=== PATIENT | female | born 1970 | race Caucasian/White ===

== ENCOUNTER → 2019-09-16 11:49 | Outpatient (CLI) | payer OTHER, MEDICAID, SELFPAY ==
--- NOTE | 2019-09-16 11:52 | BI_ITS ---
MAMMOGRAPHY - BILATERAL SCREENING REASON FOR EXAM: Female, 49 years old. Routine annual screening examination. PERTINENT HISTORY: Mother with breast cancer. TECHNIQUE: Digital bilateral breast rian (3D mammographic acquisition) in the CC and MLO projections. 2-D mediolateral oblique (MLO) and craniocaudad (CC) views of both breasts were obtained. CAD: Full Field Digital Mammography with Computer Added Detection was performed. COMPARISON: Comparison is made with prior examination dated June 19, 2017 and July 02, 2014. FINDINGS: Breast Composition: The breasts are heterogeneously dense, which may obscure small masses. There are no dominant masses or suspicious calcifications. Stable 1.4 cm x 1.4 cm well-defined nodule in the upper slightly lateral aspect of the left breast. This was demonstrated to be a cyst on prior ultrasound. Stable scattered bilateral calcifications. No other significant abnormalities are identified. There has been no significant change since the prior study. BI/SCREEN MAMM (CAD) W/RIAN BILAT IMPRESSION: Stable bilateral screening mammogram. Yearly follow-up mammogram recommended. (A) ASSESSMENT CATEGORY: BIRADS Category 2: Benign. A letter regarding these results will be sent to the patient by the facility within 30 days. Approximately 10% of breast cancers are not detected by mammography. A normal mammogram should not delay biopsy of a clinically suspicious abnormality. [id number] Electronically Signed: Huy Roche, at 11:27 EST , Service support ,
== END ==
LOC: OPBI 11:49
PROVIDERS: PCP Nurse Practitioner; Referring Provider Nurse Practitioner; Visit Provider Nurse Practitioner
DX: Z12.31 Encounter for screening mammogram for malignant neoplasm of breast (principal); Z80.3 Family history of malignant neoplasm of breast
CPT/HCPCS: 77063; 77067

== ENCOUNTER 2021-04-07 10:21 | Emergency (ER) | payer MEDICAID, SELFPAY ==
[2021-04-07 10:23] VITALS: BP 118/73; PULSE 100; RESP 18; TEMP 36.5; O2SAT 95; BMI 27.7
--- NOTE | 2021-04-07 11:11 | RAD_ITS ---
STUDY: X-RAY CHEST REASON FOR EXAM: Female, 50 years old. COVID +, incresaing SOB TECHNIQUE: Single AP portable view of the chest. COMPARISON: Comparison is made with prior study dated 07/02/2016. FINDINGS: Patchy infiltrate in the lateral aspect of the right lower lobe. Minimal increased markings at the left lung base. There is no demonstrated pleural abnormality. Normal size heart. Normal mediastinum and suki. Normal visualized pulmonary arteries. Normal visualized aortic arch and descending thoracic aorta. Normal visualized thoracic spine. Normal visualized ribs, clavicles, and shoulders. There is no demonstrated abnormality of the visualized soft tissue structures of the upper abdomen. RAD/Chest 1 View (Portable) IMPRESSION: Patchy infiltrate in the right lower lobe with mild increased markings at the left lung base. Electronically Signed: Huy Roche MD at 11:54 EDT , Service support ,
[2021-04-07 11:15] VITALS: BP 109/78; PULSE 84; RESP 22; TEMP 36.7; O2SAT 96
[2021-04-07 11:34] LABS: Absolute Lymphocyte Count 1.09 X10^3/uL (0.83-4.51); Absolute Neutrophil Count 2.9 X10^3/uL (2.0-7.7); Basophil# 0.01 X10^3/uL; Basophil% 0.2 % (0-1); Eosinophils% 2.2 % (0-5); Hematocrit 43.1 % (37-47); Hemoglobin 13.8 g/dL (12.0-15.0); Lymphocyte # 1.09 X10^3/ul (0.83-4.51); Lymphocyte % 24.4 % (19-41); Mean Corpuscular Hgb 28.6 pg (27.0-32.0); Mean Corpuscular Volume 89.2 fL (81-99); Monocyte# 0.34 X10^3/uL; Monocyte% 7.6 % (0-10); NRBC Flagged by Analyzer 0 % (0-5); Neutrophil # 2.91 X10^3/uL (2.7-7.7); Neutrophil % 65.4 % (47-70); Platelet Count 129 K/mm3 (150-450); RBC Distribution Width CV 12.4 % (11.6-14.6); RBC Distribution Width SD 40.7 fl (35.1-43.9); Red Blood Count 4.83 M/mm3 (4.2-5.4); White Blood Count 4.5 K/mm3 (4.4-11.0)
[2021-04-07 11:48] LABS: Anion Gap 4 (5-15); BUN 14 mg/dL (7-18); BUN/Creat Ratio 19.1 RATIO (10-20); Calcium,Total 8.5 mg/dL (8.5-10.1); Chloride 108 mmol/L (98-107); Creatinine, Serum 0.73 mg/dL (0.55-1.02); EST Glomerular Filtration Rate 90 mL/min (>60); Est Glom Filt Rate - Afr Amer 109 mL/min (>60); Estimated Creatinine Clearance 95.07 ml/min; Glucose 85 mg/dL (74-106); Potassium 3.8 mmol/L (3.5-5.1); Sodium Level 140 mmol/L (136-145); Troponin-I HS 4 pg/mL (3.0-54.0)
[2021-04-07 11:53] LABS: D-Dimer Quantitative (DVT/PE) 0.67 FEU/ug/m (0.27-0.49)
--- NOTE | 2021-04-07 12:19 | CT_ITS ---
STUDY: CTA CHEST REASON FOR EXAM: Female, 50 years old. COVID, elev dimer, SOB RADIATION DOSAGE (If Supplied By Facility): CTDIvol = ( 10.92 ) mGy, DLP = ( 440.01 ) mGycm TECHNIQUE: The examination was performed with the intravenous administration of IV 100mL Isovue-370. Post-processing of the angiographic images was performed, with multiplanar reformation and 3D reconstruction. Individualized dose optimization techniques were used for this CT. COMPARISON: Comparison is made with prior chest radiograph done earlier today. FINDINGS: Normal enhancement of the main pulmonary artery and right and left pulmonary arteries. Normal enhancement of the bilateral peripheral pulmonary arteries. There is no demonstrated pulmonary embolism. Normal thoracic aorta and visualized great vessels. There is no demonstrated aortic dissection. Normal heart and pericardium. Normal mediastinum. Normal hilar regions. Normal visualized trachea and bronchi. The lungs are well expanded. Patchy airspace disease along the peripheral aspect of the right lower lobe. This is in keeping with Covid 19 pneumonitis. Normal pleura. Normal chest wall structures. Normal osseous structures. Normal visualized upper abdomen. CT/CTA Chest W/WO Contrast IMPRESSION: No evidence of pleural embolism. Patchy infiltrates in the peripheral aspect of the right lower lobe in keeping with Covid 19 pneumonitis. Electronically Signed: Huy Roche MD at 13:10 EDT , Service support ,
--- NOTE | 2021-04-07 12:26 | EDS_ITS ---
HPI History of Present Illness Chief Complaint: Shortness of Breath Informant: patient Narrative Narrative: Patient is a 50-year-old female who presents to the emergency department for shortness of breath. She was diagnosed with Covid 8 days ago. This is around day 10 of symptoms. She states that she was starting to improve but recently has started to feel very short of breath. It is worse at nighttime and when she exerts herself. She has been coughing and occasionally bringing up sputum. She has had some intermittent fevers. She denies any chest pain. No leg swelling or calf pain. No abdominal pain or vomiting. She has not been taking anything for this. She has been monitoring her home pulse oximeter. The lowest that it got was 90%. She denies a smoking history. She has not been vaccinated. PFSH PFSH Home Medications sertraline [Zoloft] 200 mg PO DAILY 04/07/21 [History Last Taken Unknown] Allergy/AdvReac Type Severity Reaction Status Date / Time sulfamethoxazole Allergy Other Verified 04/07/21 10:21 [From Bactrim] trimethoprim [From Bactrim] Allergy Other Verified 04/07/21 10:21 Surgical History (Updated 04/07/21 @ 11:16 by Keira Larry) History of repair of ACL Social History Smoking Status: Never smoker ROS ROS ED Eyes Eyes: Denies change in vision ENT ENT ED: Denies epistaxis or rhinorrhea Cardiovascular Cardiovascular: Denies chest pain or palpitations Respiratory/Chest Respiratory/Chest: Reports cough, dyspnea, dyspnea on exertion and sputum Gastrointestinal Gastrointestinal: Denies abdominal pain, diarrhea, nausea or vomiting Musculoskeletal Musculoskeletal: Denies back pain or neck pain Integumentary Denies rash Neurologic Neurologic: Denies dizziness, headache(s) or weakness EXAM Physical Exam Const Vital Signs: 04/07/21 10:23 04/07/21 11:15 04/07/21 13:18 Temperature 97.7 F L 98.1 F 99.1 F Temperature Source Temporal Temporal Temporal Pulse Rate 100 84 82 Respiratory Rate 18 22 H 18 Respiratory Effort Short of Breath Respiratory Pattern Tachypnea Blood Pressure 118/73 109/78 104/91 H Blood Pressure Mean 88 88 95 Pulse Ox 95 96 97 Oxygen Delivery Method Room Air Room Air Room Air 04/07/21 13:36 Temperature Temperature Source Pulse Rate 75 Respiratory Rate 18 Respiratory Effort Respiratory Pattern Blood Pressure 114/68 Blood Pressure Mean Pulse Ox 97 Oxygen Delivery Method Positive well nourished and well developed General Appearance ED: well developed and NAD HEENT Reports normocephalic and head/scalp atraumatic Eyes PERRL and EOMs intact bilaterally Neck supple Chest Wall inspection of chest normal Resp normal respiratory effort and clear to auscultation bilaterally Auscultation: Negative for rales, rhonchi or wheezes Cardio regular rate, regular rhythm and no murmurs Extremity normal to inspection General Extremety ED: Negative for edema or tenderness General Extremity: Negative for edema Neuro Sensorium / Orientation: alert Motor Exam: strength 5/5 throughout Psych mental status grossly normal Skin no rashes or lesions noted MDM MDM MDM Narrative Medical decision making narrative: Patient presents the ED for shortness of br eath. She is currently Covid positive. This is worse with exerting herself. No chest pain. On arrival she is satting 95% on room air and borderline tachycardic. On repeat evaluation patient resting comfortably. X-ray is being obtained along with basic lab work and D-dimer. Patient's D-dimer was mildly elevated so CT angio is being performed. She has had higher D-dimers before in the past. She denies any history of blood clots. CT angio was performed and did not reveal any evidence of blood clot. There are some peripheral consolidation consistent with Covid pneumonia. She otherwise has remained stable throughout ED stay. Will recommend symptomatic treatment. She is to continue to monitor home pulse oximeter. Given the length of symptoms she does not qualify for antibiotic therapy. She is not hypoxic and does not need steroids at this time. She is to follow-up with her PCP. All questions were answered. Lab Data Labs: Laboratory Results - last 24 hr 04/07/21 04/07/21 04/07/21 11:22 11:22 11:22 WBC 4.5 RBC 4.83 Hgb 13.8 Hct 43.1 MCV 89.2 MCH 28.6 MCHC 32.0 RDW Std Deviation 40.7 RDW Coeff of [place]ana 12.4 Plt Count 129 L MPV 10.0 Immature Gran % (Auto) 0.200 Neut % (Auto) 65.4 Lymph % (Auto) 24.4 [place] % (Auto) 7.6 Eos % (Auto) 2.2 Baso % (Auto) 0.2 Absolute Neuts (auto) 2.9 Absolute Lymphs (auto) 1.09 Nucleated RBC % 0 D-Dimer Quant (PE/DVT) 0.67 H* Sodium 140 Potassium 3.8 Chloride 108 H Carbon Dioxide 28.0 Anion Gap 4 L BUN 14 Creatinine 0.73 Estim Creat Clear Calc 95.07 Est GFR (MDRD) Af Amer 109 Est GFR (MDRD) Non-Af 90 BUN/Creatinine Ratio 19.1 Glucose 85 Calcium 8.5 Troponin I High Sens 4 Radiography Diagnostic Testing: Radiology Impression Chest X-Ray 04/07/21 11:11 IMPRESSION: Patchy infiltrate in the right lower lobe with mild increased markings at the left lung base. Electronically Signed: Huy Roche MD at 11:54 EDT , Service support , Chest CTA 04/07/21 12:19 IMPRESSION: No evidence of pleural embolism. Patchy infiltrates in the peripheral aspect of the right lower lobe in keeping with Covid 19 pneumonitis. Electronically Signed: Huy Roche MD at 13:10 EDT , Service support , Discharge Plan Triage Chief Complaint: Shortness of Breath ED Provider: Krzysztof Louis Dx/Rx/DC Orders Clinical Impression: Pneumonia due to COVID-19 virus, Dyspnea Instructions: Coronavirus Disease 2019 (COVID-19): Caring for Yourself or Others, COVID-19: Lying in a Prone Position (Proning) Prescriptions: No Action sertraline [Zoloft] 100 mg Tablet 200 mg PO DAILY RF: 0 Primary Care Provider: Libertad Patel NP Referrals: Libertad Patel [employer] ATTENDANT, [employer] ATTENDANT-C [Primary Care Provider] - 1 Week Disposition Disposition: Home, Self Care Discharge Date/Time: 04/07/21 13:36
[2021-04-07 13:18] VITALS: BP 104/91; PULSE 82; RESP 18; TEMP 37.3; O2SAT 97
[2021-04-07 13:36] VITALS: BP 114/68; PULSE 75; RESP 18; O2SAT 97
== END 2021-04-07 13:36 | disposition home or self-care (01) ==
PROVIDERS: Emergency Provider Emergency Medicine; PCP Clinical Nurse Specialist
DX: U07.1 COVID-19 (principal); J12.82 Pneumonia due to coronavirus disease 2019
CPT/HCPCS: 71045; 71275; 80048; 84484; 85025; 85379; 99283; Q9967; A4216

== ENCOUNTER 2021-06-20 15:08 | Emergency (ER) | payer MEDICAID, SELFPAY ==
[2021-06-20 15:09] VITALS: BP 152/88; PULSE 91; RESP 18; TEMP 36.7; O2SAT 97; BMI 26.6
[2021-06-20 17:57] LABS: Absolute Lymphocyte Count 0.91 X10^3/uL (0.83-4.51); Absolute Neutrophil Count 9.1 X10^3/uL (2.0-7.7); Basophil# 0.03 X10^3/uL; Basophil% 0.3 % (0-1); Eosinophil# 0.09 X10^3/uL; Eosinophils% 0.9 % (0-5); Hemoglobin 14.1 g/dL (12.0-15.0); Lymphocyte # 0.91 X10^3/ul (0.83-4.51); Lymphocyte % 8.6 % (19-41); Mean Corpuscular Hgb 28.4 pg (27.0-32.0); Mean Corpuscular Volume 88.5 fL (81-99); Mean Platelet Vol. 9.1 fl (6.2-12.0); Monocyte# 0.38 X10^3/uL; Monocyte% 3.6 % (0-10); NRBC Flagged by Analyzer 0 % (0-5); Neutrophil # 9.09 X10^3/uL (2.7-7.7); Neutrophil % 86.2 % (47-70); Platelet Count 289 K/mm3 (150-450); RBC Distribution Width CV 12.9 % (11.6-14.6); RBC Distribution Width SD 42.2 fl (35.1-43.9); Red Blood Count 4.97 M/mm3 (4.2-5.4); White Blood Count 10.5 K/mm3 (4.4-11.0)
[2021-06-20 18:13] LABS: Anion Gap 3 (5-15); BUN 9 mg/dL (7-18); BUN/Creat Ratio 12.3 RATIO (10-20); Calcium,Total 9.1 mg/dL (8.5-10.1); Chloride 109 mmol/L (98-107); Creatinine, Serum 0.73 mg/dL (0.55-1.02); EST Glomerular Filtration Rate 90 mL/min (>60); Est Glom Filt Rate - Afr Amer 109 mL/min (>60); Estimated Creatinine Clearance 95.07 ml/min; Glucose 141 mg/dL (74-106); Sodium Level 139 mmol/L (136-145)
--- NOTE | 2021-06-20 18:45 | EX.ED.VIS.HA ---
HPI History of Present Illness Chief Complaint: Headache Informant: patient Onset/Context/Timing Onset: Today Context: Gradual Timing: Continuous Quality -Headache: Positive for Similar Prior Headaches and Throbbing Location: Right side of head and neck Worsened by: Light, sound Relieved by: Nothing Associated Symptoms/Injury Associated Symptoms: Positive for Nausea, Vomiting, Visual Changes, Blurred Vision and Photophobia; Negative for Fever, Sore Throat, Sinus Pressure, Numbness, Tingling, Preceding Aura and Visual Loss Injury - MCKOY: Negative for Direct Trauma Narrative Narrative: Patient presents with headache that began today. Patient states she woke up with her headache. Patient states it feels similar to prior migraine headaches. Patient describes her pain as throbbing. Patient states it is mainly on the right side of her head and radiates into her neck. Patient states it is worse with lights and sounds. Patient admits to some nausea and vomiting. Patient also admits to some blurred vision. Patient states she took her Maxalt this morning with no improvement. [facility] Medical History (Updated 06/20/21 @ 18:[address] Dale Russell DO) Migraine headache Home Medications sertraline [Zoloft] 200 mg PO DAILY 04/07/21 [History Last Taken Unknown] Allergy/AdvReac Type Severity Reaction Status Date / Time sulfamethoxazole Allergy Other Verified 06/20/21 15:11 [From Bactrim] trimethoprim [From Bactrim] Allergy Other Verified 06/20/21 15:11 Surgical History History of repair of ACL Social History Smoking Status: Never smoker ROS ROS ED Constitutional Constitutional ED: Denies chills or fever(s) Eyes Eyes: Reports blurry vision; Denies diplopia ENT ENT ED: Denies rhinorrhea or sore throat Cardiovascular Cardiovascular: Denies chest pain or palpitations Respiratory/Chest Respiratory/Chest: Denies cough or dyspnea Gastrointestinal Gastrointestinal: Reports nausea and vomiting Genitourinary Genitourinary ED: Denies dysuria or hematuria Musculoskeletal Musculoskeletal: Reports back pain and neck pain Integumentary Denies abscess or rash Neurologic Neurologic: Reports headache(s); Denies weakness Allergic/Immunologic Allergic/Immunologic ED: Denies mouth swelling or urticaria EXAM Physical Exam Const Vital Signs: 06/20/21 15:09 Temperature 98.1 F Temperature Source Temporal Pulse Rate 91 Respiratory Rate 18 Blood Pressure 152/88 H Blood Pressure Mean 109 Pulse Ox 97 Oxygen Delivery Method Room Air Positive well nourished and well developed General Appearance ED: well developed HEENT Reports moist mucous membranes Neck supple and no JVD Resp normal respiratory effort and clear to auscultation bilaterally Cardio regular rate, regular rhythm and no murmurs GI normal to inspection, nondistended, normoactive bowel sounds and non-tender Palpation: soft Extremity normal to inspection General Extremety ED: Negative for edema or tenderness General Extremity: Negative for edema Neuro oriented x3, CN's II-XII intact bilaterally and no sensory deficits noted Sensorium / Orientation: awake and alert Motor Exam: strength 5/5 throughout Psych mental status grossly normal Skin no rashes or lesions noted MDM MDM MDM Narrative Medical decision making narrative: Patient was given IV fluids, Reglan, Benadryl, and Toradol. CBC and basic metabolic profile were within normal limits. Patient was feeling better on reevaluation. Patient was instructed to rest in a dark quiet room. Patient was instructed to follow-up with her primary care physician in 5 to 7 days. Patient understood and was agreeable with the plan. All questions were answered. Lab Data Attestation: I reviewed the patient's lab results. Labs: Laboratory Results - last 24 hr 06/20/21 06/20/21 17:50 17:50 WBC 10.5 RBC 4.97 Hgb 14.1 Hct 44.0 MCV 88.5 MCH 28.4 MCHC 32.0 RDW Std Deviation 42.2 RDW Coeff of [place] 12.9 Plt Count 289 MPV 9.1 Immature Gran % (Auto) 0.400 Neut % (Auto) 86.2 H Lymph % (Auto) 8.6 L [place] % (Auto) 3.6 Eos % (Auto) 0.9 Baso % (Auto) 0.3 Absolute Neuts (auto) 9.1 H Absolute Lymphs (auto) 0.91 Nucleated RBC % 0 Sodium 139 Potassium 4.0 Chloride 109 H Carbon Dioxide 27.0 Anion Gap 3 L BUN 9 Creatinine 0.73 Estim Creat Clear Calc 95.07 Est GFR (MDRD) Af Amer 109 Est GFR (MDRD) Non-Af 90 BUN/Creatinine Ratio 12.3 Glucose 141 H Calcium 9.1 Discharge Plan Triage Chief Complaint: Headache ED Provider: Dale Russell Dx/Rx/DC Orders Clinical Impression: Headache, migraine Instructions: ED, Migraine (Classical) Prescriptions: No Action sertraline [Zoloft] 100 mg Tablet 200 mg PO DAILY RF: 0 Primary Care Provider: Libertad Patel NP Referrals: Libertad Patel NP, [employer]-[facility] [Primary Care Provider] - 3-5 Days Disposition Disposition: Home, Self Care
[2021-06-20] MEDS: DiphenhydrAMINE 50 MG/ML Syringe 25 MG IV (19:02)
[2021-06-20] MEDS: 0.9% Normal Saline 1,000 ML 999 ML IV (19:02)
[2021-06-20] MEDS: Ketorolac 15 MG/ML Vial IV (19:03)
[2021-06-20] MEDS: Metoclopramide 10 MG/2 ML Vial IV (19:04)
== END 2021-06-20 20:07 | disposition home or self-care (01) ==
PROVIDERS: Emergency Provider Emergency Medicine; PCP Clinical Nurse Specialist
DX: G43.909 Migraine, unspecified, not intractable, without status migrainosus (principal)
CPT/HCPCS: 80048; 85025; 96361; 96374; 96375; 99281; 99282; J7030

== ENCOUNTER 2025-05-07 10:22 | Emergency (ER) | payer MEDICAID, SELFPAY ==
[2025-05-07 10:22] VITALS: BP 128/81; PULSE 76; RESP 14; TEMP 36.1; O2SAT 98; BMI 25.2
[2025-05-07 11:00] VITALS: BP 116/72; BP 120/93; BP 124/82; PULSE 59; PULSE 65; PULSE 79
--- NOTE | 2025-05-07 11:00 | RAD_ITS ---
PROCEDURE: CHEST PA AND LATERAL 05/07/2025 REASON FOR EXAM: WEAKNESS TECHNIQUE: Procedure Code: RADCXR Modality: DX Procedure: CHEST PA AND LATERAL COMPARISON: None. FINDINGS: Hardware: None. Heart: No cardiomegaly. Mediastinum: Unremarkable. Lungs: Linear atelectasis in the lingula. No pleural effusion or pneumothorax. Bones: No acute bony abnormalities. RAD/Chest PA and Lateral IMPRESSION: Atelectasis in the lingula. Reading Location: [id number]
--- NOTE | 2025-05-07 11:00 | EKG12_ITS ---
Test Reason : Blood Pressure : */* mmHG Vent. Rate : 63 BPM Atrial Rate : 63 BPM P-R Int : 156 ms QRS Dur : 86 ms QT Int : 402 ms P-R-T Axes : 27 11 10 degrees QTcB Int : 411 ms Normal sinus rhythm Normal ECG Confirmed by ROSELYN REBOLLEDO, MARY ([id number]), editor book GOMEZ FARIAS ([id number]) on 05/08/2025 10:58:25 AM Referred By: Confirmed By: MARY DEMPSEY MD
[2025-05-07] MEDS: 0.9% Normal Saline (1000mL) 1,000 ML 1000 ML IV (11:07)
[2025-05-07 11:24] LABS: Hematocrit 42.4 % (37-47); Hemoglobin 14.1 g/dL (12.0-15.0); Immature Granulocytes Count 0.040 X10^3/uL (0.0-0.0); Mean Corp Hgb Conc 33.3 g/dL (32-36); Mean Corpuscular Volume 88.3 fL (81-99); Mean Platelet Vol. 8.8 fl (6.2-12.0); NRBC Flagged by Analyzer 0 % (0-5); Platelet Count 287 K/mm3 (150-450); RBC Distribution Width CV 13.2 % (11.6-14.6); RBC Distribution Width SD 43.1 fl (35.1-43.9); Red Blood Count 4.80 M/mm3 (4.2-5.4); White Blood Count 6.6 K/mm3 (4.4-11.0)
[2025-05-07 11:48] LABS: AST(SGOT) 19 U/L (<=31); Alanine Aminotransfer ALT/SGPT 13 U/L (<=34); Albumin, Serum 4.6 g/dL (3.5-5.0); Alkaline Phosphatase 70 U/L (35-104); Anion Gap 10 (5-15); BUN 18 mg/dL (4-19); BUN/Creat Ratio 25.1 RATIO (10-20); Calcium,Total 9.8 mg/dL (7.6-11.0); Carbon Dioxide 27.8 mmol/L (21.0-32.0); Chloride 102 mmol/L (98-108); Estimated Creatinine Clearance 90.94 ml/min (50-250); Globulin 2.4 g/dL (2.2-4.2); Glucose 97 mg/dL (70-99); Potassium 4.4 mmol/L (3.3-5.1)
--- NOTE | 2025-05-07 11:48 | EX.ED.DYSGE1 ---
HPI History of Present Illness Chief Complaint: Fatigue Informant: patient Narrative Narrative: Patient is a 54-year-old female with prior history melanoma (locally excised with no signs of spread/clear margins) but did go through treatment with opdivo last year. She is followed with Dr. Vora through [facility] for oncology. She states since then she has had some issues with arthritis and had a flareup of arthritis about 2 weeks ago and was on prednisone taper for 5 days. She finished it 3 days ago. She notes that for the past week and specifically for the past 4 to 5 days she has just not been feeling well. She has had feeling of disorientation, dizziness and lightheaded. She had increased myalgias. 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 She denies any fever or chills, urinary symptoms, GI symptoms such as nausea, vomiting or abdominal pain. Denies any change in bowel movements. Denies any chest pain, cough or shortness of breath. Denies any headaches. Denies any recent URI symptoms. Denies any swelling of her legs. Did note today she felt that she had some numbness in her mouth and her lower face bilaterally. Has some chronic tingling in her right arm associated with cervical radiculopathy but denies any change in that. Is currently on HRT denies any recent medication changes. No other complaints or concerns at this time. [facility] Medical History (Updated 05/07/25 @ 13:[address] Rena Melendez, DO) History of melanoma Migraine headache Medical History no medical history Home Medications ?Medication ?Instructions ?Recorded ?Last Taken ?Type sertraline 100 mg tablet (Zoloft) 200 mg PO DAILY 04/07/21 Unknown History doxepin 25 mg capsule 25 mg PO 10/16/24 Unknown History nitrofurantoin 100 mg PO Q12H 5 days #10 caps 05/07/25 Unknown Rx monohydrate/macrocrystals 100 mg capsule (Macrobid) Allergy/AdvReac Type Severity Reaction Status Date / Time sulfamethoxazole (From Allergy Other Verified 05/07/25 10:23 Bactrim) trimethoprim (From Bactrim) Allergy Other Verified 05/07/25 10:23 Family History no significant family his Surgical History Hx of melanoma excision History of repair of ACL Surgical History no surgical history Social History Smoking Status: Never smoker ROS ROS ED Constitutional Constitutional ED: Reports other Details: Generalized weakness, lightheaded ; Denies chills, fever(s) or sweats Eyes Eyes: Denies change in vision ENT ENT ED: Denies ear pain, rhinorrhea or sore throat Cardiovascular Cardiovascular: Denies chest pain Respiratory/Chest Respiratory/Chest: Denies cough or dyspnea Gastrointestinal Gastrointestinal: Denies abdominal pain, nausea or vomiting Genitourinary Genitourinary ED: Denies dysuria Musculoskeletal Musculoskeletal: Denies arthralgias or myalgias Integumentary Denies rash Neurologic Neurologic: Reports weakness; Denies headache(s) or paresthesias Psychiatric Psychiatric: Denies anxiety Hematologic/Lymphatic Hematologic/Lymphatic: Denies easy bleeding or easy bruising EXAM Physical Exam Const Vital Signs: 05/07/25 10:22 05/07/25 11:00 05/07/25 11:08 Temperature 97 F L Temperature Source Temporal Pulse Rate 76 Pulse Rate [Lying] 59 L Pulse Rate [Sitting (for 1 minute prior to obtaining)] 65 Pulse Rate [Standing (for 1 minute prior to obtaining)] 79 Respiratory Rate 14 Respiratory Effort Normal Respiratory Pattern Normal Blood Pressure 128/81 H Blood Pressure [Lying] 116/72 Blood Pressure [Sitting (for 1 minute prior to obtaining)] 124/82 H Blood Pressure [Standing (for 1 minute prior to obtaining)] 120/93 H Blood Pressure Mean 96 Blood Pressure Mean [Lying] 86 Blood Pressure Mean [Sitting (for 1 minute prior to obtaining)] 96 Blood Pressure Mean [Standing (for 1 minute prior to obtaining)] 102 Pulse Ox 98 Oxygen Delivery Method Room Air 05/07/25 12:22 05/07/25 13:24 Temperature 97 F L Temperature Source Pulse Rate 67 65 Pulse Rate [Lying] Pulse Rate [Sitting (for 1 minute prior to obtaining)] Pulse Rate [Standing (for 1 minute prior to obtaining)] Respiratory Rate 16 16 Respiratory Effort Respiratory Pattern Blood Pressure 123/76 H Blood Pressure [Lying] Blood Pressure [Sitting (for 1 minute prior to obtaining)] Blood Pressure [Standing (for 1 minute prior to obtaining)] Blood Pressure Mean 91 Blood Pressure Mean [Lying] Blood Pressure Mean [Sitting (for 1 minute prior to obtaining)] Blood Pressure Mean [Standing (for 1 minute prior to obtaining)] Pulse Ox 100 100 Oxygen Delivery Method Room Air Positive well nourished and well developed General Appearance ED: well developed and NAD HEENT Reports TM's clear and moist mucous membranes HEENT Narrative: Normal oropharynx, no nasal congestion present Tympanic Membrane ED: Yes TM's clear Neck supple and no JVD Chest Wall inspection of chest normal and palpation of chest normal Resp normal respiratory effort and clear to auscultation bilaterally Cardio regular rate and regular rhythm GI normal to inspection, nondistended, normoactive bowel sounds and non-tender Extremity normal to inspection General Extremety ED: Negative for edema General Extremity: Negative for edema Neuro oriented x3, CN's II-XII intact bilaterally and no sensory deficits noted Sensorium / Orientation: alert Motor Exam: strength 5/5 throughout; Negative for general weakness Psych mental status grossly normal Skin no rashes or lesions noted and no wounds MDM MDM MDM Narrative Medical decision making narrative: Patient is evaluated for generalized weakness and dizziness. Describes it more as a lightheaded sensation. She just really has been feeling good. Usually very high energy. Has history of melanoma which has been treated. Does not have any other symptoms including infectious symptoms, viral symptoms or any chest pain, shortness of breath or difficulty breathing. Is overall well-appearing. I initially does have orthostatics which were symptomatic and while her blood pressure stable her heart rate does go up. Is feeling better after IV fluids. CBC, CMP normal. Urinalysis is consistent with infection with positive nitrates and 2+ bacteria. Question if UTI is causing her symptoms. Will send off her urine culture and start her on Macrobid. Patient reevaluated and feeling improved. Given return precautions. Discharged home. EKG does not show an arrhythmia as a cause of her symptoms. No MARIA ESTHER. No symptomatic anemia. No systemic signs of infection. Lab Data Attestation: I reviewed the patient's lab results. Labs: Laboratory Results - last 24 hr 05/07/25 05/07/25 11:08 12:16 WBC 6.6 RBC 4.80 Hgb 14.1 Hct 42.4 MCV 88.3 MCH 29.4 MCHC 33.3 RDW Std Deviation 43.1 RDW Coeff of [place] 13.2 Plt Count 287 MPV 8.8 Immature Gran % (Auto) 0.600 Neut % (Auto) 60.8 Lymph % (Auto) 25.3 [place] % (Auto) 8.2 Eos % (Auto) 4.5 Baso % (Auto) 0.6 Absolute Neuts (auto) 4.0 Absolute Lymphs (auto) 1.67 Nucleated RBC % 0 Sodium 140 Potassium 4.4 Chloride 102 Carbon Dioxide 27.8 Anion Gap 10 BUN 18 Creatinine 0.73 Estim Creat Clear Calc 90.94 Est GFR (MDRD) Non-Af 100 BUN/Creatinine Ratio 25.1 H Glucose 97 Calcium 9.8 Total Bilirubin 0.29 AST 19 ALT 13 Alkaline Phosphatase 70 Total Protein 7.0 Albumin 4.6 Globulin 2.4 Albumin/Globulin Ratio 1.9 Urine Color Yellow Urine Clarity Sl. Cloudy Urine pH 7.0 Ur Specific [place] 1.010 Urine Protein 30 H Urine Glucose (UA) Normal Urine Ketones Negative Urine Occult Blood 150 H Urine Nitrite Positive H Urine Bilirubin Negative Urine Urobilinogen Normal Ur Leukocyte Esterase 25 H Urine RBC 0-5 SEEN Urine WBC 0-5 SEEN Ur Squamous Epith Cells 0-5 SEEN Urine Bacteria 2+ Urine Mucus 0 SEEN Radiography Diagnostic Testing: Clinical Impression(s) from Imaging Studies Chest X-Ray 05/07/25 11:00 IMPRESSION: Atelectasis in the lingula. Reading Location: [facility] Rhythm Strip Rhythm Strip: Sinus Rhythm Rate: 63 Ectopy: None EKG Initial EKG: Attestation: I personally reviewed and interpreted this EKG as follows: Interpretation: Sinus Rhythm Comments: Normal sinus rhythm rate of 63 bpm Normal axis Normal intervals Normal ST segments Discharge Plan Triage Chief Complaint: Fatigue ED Provider: Rena Melendez Dx/Rx/DC Orders Clinical Impression: UTI (urinary tract infection), Fatigue, Lightheaded Instructions: ED Weakness Uncertain Cause, ED UTIs Women Prescriptions: New nitrofurantoin monohyd/m-cryst [Macrobid] 100 mg capsule 100 mg PO Q12H 5 Days Qty: 10 0RF Rx Instructions: must administer with a meal/food No Action doxepin 25 mg capsule 25 mg PO sertraline [Zoloft] 100 mg Tablet 200 mg PO DAILY Stand Alone Forms: ED Work / School Excuse Primary Care Provider: Libertad Patel NP Referrals: Libertad Patel NP, TE[employer] MANAGER[employer] [Primary Care Provider, Medical] Activity Restrictions/Additional Instructions: Your lab work is consistent with a urinary tract infection but otherwise largely normal. You are given IV fluids and stone antibiotics in the emergency room. I suspect UTIs but is causing her general sense of malaise and weakness. Make sure you are pushing fluids and eating regularly. We did send a urine off for culture, you will be contacted in the next 2 to 3 days if your urine culture requires your antibiotics to be changed. Please follow with your family doctor next week. Please return if you have progression worsening of your symptoms. Print Language: Bengali Disposition Disposition: Home, Self Care Discharge Date/Time: 05/07/25 13:31
[2025-05-07 12:22] VITALS: PULSE 67; RESP 16; O2SAT 100
[2025-05-07 12:26] LABS: Mucous, Urine 0 SEEN /hpf (<or=2+)
[2025-05-07 12:37] LABS: Color, Urine Yellow (Yellow); Glucose, Dipstick Normal (Normal); Ketone-Dipstick Negative (Negative); Leukocyte Esterase-Dipstick 25 /ul (Negative); Nitrite-Dipstick Positive (Negative); Occult Blood-Urine 150 /ul (Negative); Protein-Dipstick 30 mg/dl (Negative); Specific Gravity, Urine 1.010 (1.002-1.030); Urine Bilirubin Dipstick Negative (Negative)
[2025-05-07 12:43] LABS: Squamous Epithelial Cells - UA 0-5 SEEN /hpf (5-10)
[2025-05-07 12:44] LABS: Red Blood Cells-Urine 0-5 SEEN /hpf (0-5)
[2025-05-07 13:24] VITALS: BP 123/76; PULSE 65; RESP 16; TEMP 36.1; O2SAT 100
== END 2025-05-07 13:31 | disposition home or self-care (01) ==
PROVIDERS: Emergency Provider Emergency Medicine; PCP Clinical Nurse Specialist; Visit Provider Emergency Medicine
DX: N39.0 Urinary tract infection, site not specified (principal)
CPT/HCPCS: 71046; 80053; 81001; 85025; 87086; 93005; 96360; 96361; 99284; A4216